=== PATIENT | male | born 1970 | race Caucasian/White ===

== ENCOUNTER 2024-10-17 08:22 | Emergency (ER) | payer OTHER, SELFPAY ==
--- OUTSIDE RECORDS SUMMARY | 2024-10-17 08:33 | XMS_ITS | Encounter Summary ---
Author Organization [facility] Address [address] [place] [address] Care Team Providers Care Crate Repairer Name Role Phone Hien Hendricks MD Primary Care Provider [phone] Osmin Pantoja Primary Care Provider [phone] Reason for Visit * Reason Onset Date Comments MEDICATION REFILL 11/06/2023 Encounter Details Date Type Department Care Team (Late st Contact Info) Description 11/06/[address] [facility] - Family Medicine [address] [place], [place] [id number] Rika Crowley, PASidneyC [address] [place] [phone] MEDICATION REFILL Social History Tobacco Use Types Packs/Day Years Used Date Smoking Tobacco: Never Passive Smoke Exposure: Past Smokeless Tobacco: Never Alcohol Use Standard Drinks/Week Comments Yes 0 (1 standard drink = 0.6 oz pur e alcohol) PHQ-2 Answer Date Recorded Patient Health Questionnaire-2 Score 0 07/31/2023 Sex and Gender Information Value Date Recorded Sex Assigned at Male 04/12/2020 10:17 PM HAMMER DRIVER Legal Sex Male 6:52 AM CDT Gender Identity Male 04/12/2020 10:17 PM HAMMER DRIVER Sexual Orientation Straight 04/12/2020 10 :17 PM HAMMER DRIVER documented as of this encounter Plan of Treatment Not on file documented as of this encounter Visit Diagnoses Diagnosis High blood cholesterol level Pure hypercholesterolemia documented in this encounter Care Teams Crate Repairer Relationship Specialty Start Date End Date Hien Hendricks MD PCP - General 07/30/13 10/04/24 Osmin Pantoja [address] [place] [address] PCP - General 10/05/24 documented as of this encounter
--- OUTSIDE RECORDS SUMMARY | 2024-10-17 08:33 | XMS_ITS | Encounter Summary ---
Author Organization [facility] Address [address] [place] [address] Care Team Providers Care Sausage Inspector Name Role Phone Hien Hendricks MD Primary Care Provider [phone] Osmin Pantoja Primary Care Provider [phone] Reason for Visit * Reason Onset Date Comments MEDICATION REFILL 09/28/2023 Encounter Details Date Type Department Care Team (Late st Contact Info) Description 09/28/2023 Refill [facility] - Family Medicine [address] [place], [place] [id number] Hien Hendricks MD [address] [place] [address] MEDICATION REFILL Social History Tobacco Use Types Packs/Day Years Used Date Smoking Tobacco: Never Passive Smoke Exposure: Past Smokeless Tobacco: Never Alcohol Use Standard Drinks/Week Comments Yes 0 (1 standard drink = 0.6 oz pur e alcohol) PHQ-2 Answer Date Recorded Patient Health Questionnaire-2 Score 0 07/31/2023 Sex and Gender Information Value Date Recorded Sex Assigned at Male 04/12/2020 10:17 PM VEHICLE MAINTENANCE SUPERVISOR Legal Sex Male 6:52 AM CDT Gender Identity Male 04/12/2020 10:17 PM VEHICLE MAINTENANCE SUPERVISOR Sexual Orientation Straight 04/12/2020 10 :17 PM VEHICLE MAINTENANCE SUPERVISOR documented as of this encounter Miscellaneous Notes * Telephone Encounter - Rika Crowley PA-C - 09/30/2023 8:39 AM CDT Overdue for labs * Telephone Encounter - Wilfrid Burns - 09/30/2023 8:23 AM CDT DOES NOT MEET PROTOCOL SENT TO PROVIDER FOR REVIEW Last visit related to medication: 07/31/2023 Provider recommended refill duration at last visit, if specified: High blood cholesterol level - Continue Crestor, refill sent. - rosuvastatin (Crestor) 20 MG tablet; Take 1 (one) tablet by mouth once daily Dispense: 90 tablet;Refill: 4 - LIPID PROFILE; Future Upcoming visit related to medication: na Disposition of prescription: e-prescribe to preferred pharmacy Response to patient: None necessary Remember to verify preferred pharmacy Please sign order and advise on follow up and quantity. Recent Labs Component Name 04/13/20 0727 04/08/17 1045 CHOLESTEROL 270* 288* TRIGLYCERIDE 347* 302* HDL 42 44 LDL 159* 184* CHOLHDL 6 7 NONHDL 228 244 documented in this encounter Plan of Treatment Not on file documented as of this encounter Visit Diagnoses Diagnosis High blood cholesterol level Pure hypercholesterolemia documented in this encounter Care Teams Sausage Inspector Relationship Specialty Start Date End Date Hien Hendricks MD PCP - General 07/30/13 10/04/24 Osmin Pantoja [address] [place] [address] PCP - General 10/05/24 documented as of this encounter
--- OUTSIDE RECORDS SUMMARY | 2024-10-17 08:33 | XMS_ITS | Clinical Summary ---
Author Organization [facility] Address [address] [place] [address] Care Team Providers Care Human Services Case Manager Name Role Phone Osmin Pantoja Primary Care Provider [phone] Source Comments [facility],non-owned Affiliates and Associated Physician Practices is amultiple site organization consisting of ambulatory clinics and hospital sitesin [place], [place], [place] and [place]. This disclosure is being madepursuant to the Care Everywhere program and may not contain all information available regarding this patient. Last updated 18.[facility] Allergies No known active allergies Medications * Be aware that medications may not be up to date on this document. Alwaysverify current medications with the patient. ALPRAZolam (Xanax) 0.25 MG tabletIndicatio ns:Panic attacks 1 tab as needed for a panic attack, max of 2 tabs in 24 hours, may also take 1/2 hour prior to flying. Should last 3 months 10 tablet 5 Active hydrOXYzine HCl (Atarax) 10 MG tabletIndicatio ns:Anxiety,Nerv ousness Take 0.5 (one-half) tablet to 1 (one) tablet by mouth 3 times daily as needed Reasons: Feeling Anxious, Feeling Tense 60 tablet 1 5 Active propranolol (Inderal) 10 MG tabletIndicatio ns:Flying phobia Take 1 (one) tablet by mouth 3 times daily as needed for Hypertension 30 tablet 2 5 Active ALPRAZolam (Xanax) 0.5 MG tabletIndicatio ns:Anxiety Take 0.5 (one-half) tablet by mouth 2 times daily as needed for Anxiety (flight anxiety) Reasons: Feeling Anxious 10 tablet 1 5 Active rosuvastatin (Crestor) 20 MG tabletIndicatio ns:High blood cholesterol level Take 1 (one) tablet by mouth once daily 90 tablet 4 5 Active Active Problems Problem Noted Date Diagnosed Date Atypical chest pain 11/06/2021 Overview (11/06/2021): Fair exercise tolerance, achieving 8.0 mets METS and 105% of max predicted heart rate. No chest pain. Negative stress EKG. No stress induced wall motion abnormality. Elevated blood pressure at baseline and hypertensive blood pressure response to exercise No significant arrhythmia. Lab test positive for detection of COVID-19 viru s 04/13/2020 Overview (04/13/2020): 03/14/20 positive results isolated till 03/24/2020 Impaired glucose metabolism 04/08/2017 High blood cholesterol level 04/08/2017 Overview (01/16/2022): 12/2021 LDL 192 outside lab, recommended starting Crestor 20 mg daily Acute anxiety 07/11/2015 Overview (04/15/2024): start 0.25 mg alprazolam tabs PRN; 15 tabs to last 3 months on avg. . . Using 4 to 6 tabs of alprazolam a month for travel, okay for refill as needed 08/2024. Through 08/2024 Panic attacks 06/12/2015 Atypical nevus 10/30/2014 Encounters Date Type Department Care Team Description 09/07/2024 10:30 AM CDT Video Visit [facility] [address] [place] [address] Rika Crowley PA-C Flying phobia ; High blood cholesterol level 08/30/2024 Refill [facility] Medicine [address] [place] [address] Hien Hendricks MD MEDICATION REFILL 07/26/2024 Refill [facility] - Family Medicine [address] [place] [address] Hien Hendricks MD MEDICATION REFILL from Last 3 Months Immunizations Immunization Administration Dates Next Due HAMLET SASHA PRIMARY 18+YR 09/05/2020 TDAP (7yrs+) 07/30/2013 Family History Medical History Relation Name Comments Diabetes Gparents maternal grandm other Relation Name Status Comments Gparents Social History Tobacco Use Types Packs/Day Years Used Date Smoking Tobacco: Never Passive Smoke Exposure: Past Smokeless Tobacco: Never Tobacco Cessation:Counseling Given: Yes Alcohol Use Standard Drinks/Week Comments Yes 0 (1 standard drink = 0.6 oz pur e alcohol) PHQ-2 Answer Date Recorded Patient Health Questionnaire-2 Score 0 09/06/2024 Sex and Gender Information Value Date Recorded Sex Assigned at Male 04/12/2020 10:17 PM ACCOUNT EXECUTIVE TRAINEE Legal Sex Male 6:52 AM CDT Gender Identity Male 04/12/2020 10:17 PM ACCOUNT EXECUTIVE TRAINEE Sexual Orientation Straight 04/12/2020 10 :17 PM ACCOUNT EXECUTIVE TRAINEE Last Filed Vital Signs Vital Sign Reading Time Taken Comments Blood Pressure 136/84 07/31/2023 12:04 PM ACCOUNT EXECUTIVE TRAINEE Pulse 82 07/31/2023 12:04 PM ACCOUNT EXECUTIVE TRAINEE Temperature 37 C (98.6 F) 04/11/2017 10:50 AM ACCOUNT EXECUTIVE TRAINEE Respiratory Rate 14 04/11/2017 10:50 AM ACCOUNT EXECUTIVE TRAINEE Oxygen Saturation 97% 01/21/2016 2:45 AM CDT Inhaled Oxygen Concentration - - Weight 95.3 kg (210 lb) 11/13/2021 12:48 PM CDT Height 177.8 cm (5' 10 ) 07/31/2023 11:56 AM ACCOUNT EXECUTIVE TRAINEE Body Mass Index 30.13 11/13/2021 12:48 PM CDT Plan of Treatment Health Maintenance Due Date Last Done Comments COLON MONITORING 1972 COLONOSCOPY - COLON CA SCREENING 1972 CT COLONOGRAPHY - COLON CA SCREENING 1972 FIT - COLON CA SCREENING 1972 FLEX SIG - COLON CA SCREENING 1972 PNEUMOCOCCAL VACCINE 50+ (1 of 1 - PCV) 2022 ZOSTER VACCINE (1 of 2) 2022 DTAP/TDAP/TD VACCINES (2 - Td or Tdap) 07/30/2023 07/30/2013 COVID-19 VACCINE (2 - season) 2024 09/05/2020 COLOGUARD (AGES 45-75) - COLON CA SCREENING 11/29/2024 11/29/2021, 11/29/2021 Colorectal Cancer Screening 11/29/2024 INFLUENZA VACCINE (Season Ended) 2025 HEPATITIS C SCREENING Completed 04/13/2020 HIV SCREENING Completed 04/13/2020 DEPRESSION SCREENING Completed 09/07/2024, 07/31/2023, 09/29/2022, Additional history exists HEPATITIS B VACCINE Discontinued HIB VACCINE Aged Out No longer eligi ble based on patient's age to complete this topic HPV VACCINE Aged Out No longer eligi ble based on patient's age to complete this topic MENINGOCOCCAL (Group B) VACCINE SHARED DECISION-MAKING Aged Out No longer eligible based on patient's age to complete this topic MENINGOCOCCAL GROUPS A/C/Y/W VACCINE Aged Out No longer eligible based on patient's age to complete this topic Procedures Procedure Name Priority Date/Time Associated Diagnosis Comments COLOGUARD TEST Routine 11/29/2021 9:19 AM CDT Annual physical exam Colon cancer screening HEPATITIS C ANTIBODY Routine 04/13/2020 7:27 AM ACCOUNT EXECUTIVE TRAINEE Annual physical exam Encounter for hepatitis C screening test for low risk patient HIV-1 HIV-2 ANTIBODY + HIV P24 AG PANEL Routine 04/13/2020 7:27 AM ACCOUNT EXECUTIVE TRAINEE Annual physical exam from Last 3 Months or Most Recently Relevant to Health Maintenance Results * COLOGUARD TEST (11/29/2021 9:19 AM CDT) Cologuard Negative Negative [facility] Comment: NEGATIVE TEST RESULT. A negative Cologuard result indicates a low likelihood that a colorectal cancer (CRC) or advanced adenoma (adenomatous polyps with more advanced pre-malignant features) is present. The chance that a person with a negative Cologuard test has a colorectal cancer is less than 1 in 1500 (negative predictive value >99.9%) or has an advanced adenoma is less than 5.3% (negative predictive value 94.7%). These data are based on a prospective cross-sectional study of 10,000 individuals at average risk for colorectal cancer who were screened with both Cologuard and colonoscopy. (Brown [place] al, N Engl J Med 2014;370(14):7986-6719) The normal value (reference range) for this assay is negative. COLOGUARD RE-SCREENING RECOMMENDATION: Periodic colorectal cancer screening is an important part of preventive healthcare for asymptomatic individuals at average risk for colorectal cancer. Following a negative Cologuard result, the [place] [employer] Society and U.S. Multi-Society Task Force screening guidelines recommend a Cologuard re-screening interval of 3 years. References: [place] [employer] Guideline for Colorectal Cancer Screening: https://www.cancer.org/cancer/hxaxs-fnblpj-aokine/hbhiwhopd-yrcyuwdix-qibekty/ acs-recommendations.html.; Fady DK, Jane NORTON, Fariha BarretoK, Colorectal Cancer Screening: Recommendations for Physicians and Patients from the U.S. Multi-Society Task Force on Colorectal Cancer Screening , Am J Gastroenterology 2017; 112:0508-0329. TEST DESCRIPTION: Composite algorithmic analysis of stool DNA-biomarkers with hemoglobin immunoassay. Quantitative values of individual biomarkers are not reportable and are not associated with individual biomarker result reference ranges. Cologuard is intended for colorectal cancer screening of adults of either sex, 45 years or older, who are at average-risk for colorectal cancer (CRC). Cologuard has been approved for use by the U.S. FDA. The performance of Cologuard was established in a cross sectional study of average-risk adults aged 50-84. Cologuard performance in patients ages 45 to 49 years was estimated by sub-group analysis of near-age groups. Colonoscopies performed for a positive result may find as the most clinically significant lesion: colorectal cancer [4.0%], advanced adenoma (including sessile serrated polyps greater than or equal to 1cm diameter) [20%] or non- advanced adenoma [31%]; or no colorectal neoplasia [45%]. These estimates are derived from a prospective cross-sectional screening study of 10,000 individuals at average risk for colorectal cancer who were screened with both Cologuard and colonoscopy. (Imperiale T. et al, N Engl J Med 2014;370(14):4922-4439.) Cologuard may produce a false negative or false positive result (no colorectal cancer or precancerous polyp present at colonoscopy follow up). A negative Cologuard test result does not guarantee the absence of CRC or advanced adenoma (pre-cancer). The current Cologuard screening interval is every 3 years. ([place] [employer] Society and U.S. Multi-Society Task Force). Cologuard performance data in a 10,000 patient pivotal study using colonoscopy as the reference method can be accessed at the following location: www.Mixamo.Orgenesis/results. Additional description of the Cologuard test process, warnings and precautions can be found at www.cologuard.com. Stool STOOL SPECIMEN / Unknown 11/29/2021 9:19 AM CDT 11/30/2021 6:34 PM CDT us Hien Hendricks MD LAB - CHEMISTRY ORDERABLES [place] l Result Performing Organization Address [facility] Co de Phone Number [facility] [address] [place] [address] [facility] [address] [place] [address] * HIV-1 HIV-2 ANTIBODY + HIV P24 AG PANEL (04/13/2020 7:27 AM ACCOUNT EXECUTIVE TRAINEE) HIV p24 Antigen + HIV-1/HIV-2 Antibody Nonreactive Nonreactive 04/13/2020 11:53 AM ACCOUNT EXECUTIVE TRAINEE [facility] Comment:No detectable HIV-1 p24 Ag or HIV-1/HIV-2 antibodies. No laboratory evidence of HIV infection. If acute HIV infection is suspected, consider testing for HIV- 1 RNA. Blood BLOOD SPECIMEN / Unknown Lab Venipuncture / Unknown 04/13/2020 7:27 AM ACCOUNT EXECUTIVE TRAINEE 04/13/2020 7:27 AM ACCOUNT EXECUTIVE TRAINEE us Hien Hendricks MD LAB - CHEMISTRY ORDERABLES [place] l Result Performing Organization Address City/[facility]/ZIP Co de Phone Number [facility] [address] * HEPATITIS C ANTIBODY (04/13/2020 7:27 AM ACCOUNT EXECUTIVE TRAINEE) Hepatitis C Antibody Negative Negative 04/13/2020 11:57 AM ACCOUNT EXECUTIVE TRAINEE [facility] Comment:Antibodies to HCV no t detected; does not exclude the possibility of exposure to HCV. Blood BLOOD SPECIMEN / Unknown Lab Venipuncture / Unknown 04/13/2020 7:27 AM ACCOUNT EXECUTIVE TRAINEE 04/13/2020 7:27 AM ACCOUNT EXECUTIVE TRAINEE us Hien Hendricks MD LAB - CHEMISTRY ORDERABLES [place] mccall Result [facility] [address] [place] [id number] from Last 3 Months or Most Recently Relevant to Health Maintenance Insurance [employer] Care Teams Human Services Case Manager Relationship Specialty Start Date End Date Osmin Pantoja [address] [place] [address] PCP - General 10/05/24
[2024-10-17 08:34] VITALS: BP 155/90; PULSE 88; RESP 16; TEMP 36.6; O2SAT 100
--- NOTE | 2024-10-17 09:16 | ED_ITS ---
HPI - General Adult General Chief complaint: Eye Problems Stated complaint: pink eye Source: patient Mode of arrival: ambulatory Limitations: no limitations History of Present Illness HPI narrative: Pt presents for evaluation of right eye irritation. He states about one week ago he had sinus congestion and nasal drainage. He then developed symptoms consistent with allergies, including irritation of the eyes with associated tearing and itching. He has been using Visine and allergy eyedrops. Redness and irritation persists. Denies thick drainage from the eyes. Denies any visual disturbance. He wears glasses but not contacts. He is concerned about persistence of his symptoms as he will be traveling for work. Related Data Home Medications Medication Instructions Recorded Confirmed Last Taken Type alprazolam 0.5 mg tablet mg 10/17/24 Unknown History propranolol 10 mg tablet mg 10/17/24 Unknown History rosuvastatin 20 mg tablet mg 10/17/24 Unknown History Allergies Allergy/AdvReac Type Severity Reaction Status Date / Time No Known Allergies Allergy Verified 10/17/24 08:37 Review of Systems Review of Systems: CONSTITUTIONAL: Denies fever, chills, or sweats. EYES: reports right eye redness, irritation, tearing, itching. Denies visual disturbance. ENT: Denies rhinorrhea, congestion, sore throat, or otalgia. CARDIOVASCULAR: Denies chest pain, palpitations, or edema. RESPIRATORY: Denies cough or dyspnea. GASTROINTESTINAL: Denies abdominal pain, nausea, vomiting, or diarrhea. GENITOURINARY: Denies dysuria or hematuria. SKIN: Denies rash or itching. MUSCULOSKELETAL: Denies back pain, joint pain, or myalgia. NEUROLOGIC: Denies headache, numbness, dizziness, or weakness. PSYCHIATRIC: Denies anxiety or depression. [facility], [facility] Past Medical History Medical History Anxiety Hyperlipidemia Surgical History Surgical History No pertinent past surgical history Family History Family History Mother Family history non-contributory Social History Social History Smoking status: Never smoker Gender identity (if verbalized by the patient): Male Spiritual care concerns: No Exam Narrative: GENERAL: Well-appearing, well-nourished, and in no acute distress. HEAD: Normocephalic, atraumatic. EYES: PERRLA and EOMI. there is right conjunctival injection with tearing present ENT: Nares clear, no rhinorrhea or epistaxis. Mucous membranes moist. Oropharynx without tonsillar hypertrophy exudate or other lesions. Bilateral TMs pearly pabon nonbulging NECK: Supple. No adenopathy or masses. No carotid bruits or JVD CHEST: Clear to auscultation. No respiratory distress. No wheezes rales or rhonchi HEART: Regular rate and rhythm. No murmur heard. Normal peripheral pulses. ABDOMEN: Soft, nontender, nondistended, normal active bowel sounds. EXTREMITIES: Normal range of motion. No edema. SKIN: Warm, dry, no rash. NEURO: No focal deficits. Alert and oriented x3. PSYCH: Normal mood and affect. Course Course Emergency Course: this is a 54-year-old male who presented for evaluation of redness, itching, tearing to the right eye. He is already being treated for allergic conjunctivitis. This may be a viral process is he recently had symptoms c onsistent with a common cold. However he will be traveling we cannot definitively exclude bacterial conjunctivitis. Will discharge with erythromycin. Doubt corneal abrasion as he has no sensation of foreign body in the eye. Regardless, he would be on appropriate treatment for that. No history of herpes for consideration of herpes ophthalmicus. Should follow-up with his primary care provider go to the ER for worsening symptoms. Patient in agreement with plan of care. Level of Care: Express Care Visit Vital Signs Vital signs: Vital Signs Temperature 36.6 C 10/17/24 08:34 Pulse Rate 88 10/17/24 08:34 Respiratory Rate 16 10/17/24 08:34 Blood Pressure 155/90 H 10/17/24 08:34 Pulse Oximetry 100 10/17/24 08:34 Oxygen Delivery Room Air 10/17/24 08:34 Temperature 36.6 C 10/17/24 08:34 Pulse Rate 88 10/17/24 08:34 Respiratory Rate 16 10/17/24 08:34 Blood Pressure 155/90 H 10/17/24 08:34 Pulse Oximetry 100 10/17/24 08:34 Oxygen Delivery Room Air 10/17/24 08:34 Medical Decision Making Vital Signs Vital Signs: Vital Signs Temperature 36.6 C 10/17/24 08:34 Pulse Rate 88 10/17/24 08:34 Respiratory Rate 16 10/17/24 08:34 Blood Pressure 155/90 H 10/17/24 08:34 Pulse Oximetry 100 10/17/24 08:34 Oxygen Delivery Room Air 10/17/24 08:34 Temperature 36.6 C 10/17/24 08:34 Pulse Rate 88 10/17/24 08:34 Respiratory Rate 16 10/17/24 08:34 Blood Pressure 155/90 H 10/17/24 08:34 Pulse Oximetry 100 10/17/24 08:34 Oxygen Delivery Room Air 10/17/24 08:34 Discharge Plan Discharge Clinical Impression: Conjunctivitis Patient Disposition: Home Condition: Stable Instructions: Antibiotic Form, Conjunctivitis (ED) Additional Instructions: Please start oral daily cetirizine(zyrtec) Patient Language: Polish Prescriptions: New erythromycin 5 mg/gram (0.5 %) ointment 1 applic EACH EYE 6XD 7 Days Qty: 3.5 0RF No Action alprazolam 0.5 mg tablet propranolol 10 mg tablet rosuvastatin 20 mg tablet Follow-up/Referrals: Terell Thornton MD [Physician] - Time of Disposition: 08:56
== END 2024-10-17 09:01 | disposition home or self-care (01) ==
PROVIDERS: Emergency Provider Nurse Practitioner
DX: H10.9 Unspecified conjunctivitis (principal); E78.5 Hyperlipidemia, unspecified
CPT/HCPCS: 99203; G0463